=== PATIENT | male | born 1985 | race Caucasian/White ===

== ENCOUNTER 2016-10-02 16:44 | Emergency (ER) | payer SELFPAY ==
[2016-10-02 18:31] VITALS: BP 130/74
== END 2016-10-02 18:32 | disposition other institution (70) ==
LOC: ED 16:44
DX: S40.011A Contusion of right shoulder, initial encounter (principal); V89.2XXA Person injured in unspecified motor-vehicle accident, traffic, initial encounter; Y93.89 Activity, other specified; Y92.89 Other specified places as the place of occurrence of the external cause; Y99.8 Other external cause status

== ENCOUNTER 2016-10-02 16:44 | Emergency (ER) | payer OTHER | END 2016-10-02 18:32 | disposition other institution (70) | LOC: ED 16:44 | DX: Z02.89 Encounter for other administrative examinations (principal) ==